=== PATIENT | male | born 1960 | race Hispanic/Latino ===

== ENCOUNTER 2021-11-21 14:46 | Emergency (ER) | payer MEDICARE, OTHER ==
[~2021-11-21] VITALS: Ht 162.6 cm; Wt 68.0 kg
[~2021-11-21 14:46] MED LIST: ALDACTONE25 MG PO; HUMALOG100 UNIT/3 SQ; LANTUS100 UNITS/ SQ; LEVEMIR100 UNIT/1; NYSTATIN15 G2 TP; PANTOPRAZOLE SO40 MG PO; ULTRAM50 MG PO
== END 2021-11-21 18:12 | disposition home or self-care (01) ==
LOC: ER 15:27
DX: K74.60 Unspecified cirrhosis of liver (principal); R18.8 Other ascites
CPT/HCPCS: 99282